=== PATIENT | female | born 1960 | race Native Hawaiian/Other Pacific Islander ===

== ENCOUNTER 2017-03-08 09:13 | Outpatient (CLI) | payer OTHER ==
[~2017-03-08 09:13] MED LIST: ESTR1.254 PO; IBUPROFEN PO; LEXAPRO20 MG OR; LORAZEPAM0.5 MG OR; LOSA50TA PO; MEDR2.5T19 PO; OXYC5TAB53 PO; TRAM50TA PO
== END 2017-03-08 10:45 | disposition home or self-care (01) ==
LOC: MAMMO 09:13
DX: Z12.31 Encounter for screening mammogram for malignant neoplasm of breast (principal)
CPT/HCPCS: G0202-TC

== ENCOUNTER 2017-04-05 10:12 | Outpatient (CLI) | payer OTHER | END 2017-04-05 11:45 | disposition home or self-care (01) | LOC: MAMMO 10:12 | DX: R92.8 Other abnormal and inconclusive findings on diagnostic imaging of breast (principal) ==

== ENCOUNTER 2017-11-30 08:51 | Outpatient (CLI) | payer OTHER | END 2017-11-30 22:27 | disposition home or self-care (01) | LOC: MAMMO 08:51 | DX: R92.8 Other abnormal and inconclusive findings on diagnostic imaging of breast (principal) ==

== ENCOUNTER 2018-02-27 04:47 | Emergency (ER) | payer OTHER ==
[~2018-02-27] VITALS: Ht 170.2 cm; Wt 70.8 kg
[2018-02-27 04:56] VITALS: TEMP 97.8
[2018-02-27 05:41] LABS: PLATELET COUNT 341 K/uL (152-353)
[2018-02-27 05:43] LABS: POTASSIUM 3.3 mmol/L (3.6-5.2)
[2018-02-27 10:45] VITALS: BP 115/65
== END 2018-02-27 10:45 | disposition home or self-care (01) ==
LOC: ED 04:47
PROVIDERS: Internal Medicine
DX: N20.9 Urinary calculus, unspecified (principal)
CPT/HCPCS: 36415; 80053; 81000; 85027; 96360; 96374; 96375; 96376; 99284; J0696; J1885; J2175; J2405; Q9963

== ENCOUNTER 2019-04-15 13:30 | Emergency (ER) | payer OTHER ==
[~2019-04-15] VITALS: Ht 170.2 cm; Wt 70.8 kg
[2019-04-15 14:08] LABS: PLATELET COUNT 384 K/uL (152-353)
[2019-04-15 14:11] LABS: POTASSIUM 4.2 mmol/L (3.6-5.2); SODIUM 141 mmol/L (136-145)
[2019-04-15 15:30] VITALS: BP 136/82; TEMP 97.5
== END 2019-04-15 15:30 | disposition home or self-care (01) ==
LOC: ED 13:30
PROVIDERS: Student in an Organized Health Care Education/Training Program
DX: R42 Dizziness and giddiness (principal); R11.0 Nausea; R51 Headache; I45.81 Long QT syndrome; F17.210 Nicotine dependence, cigarettes, uncomplicated
CPT/HCPCS: 80048; 81000; 83735; 84443; 84484; 85027; 93005; 96374; 96375; 99284; J1885; J2405

== ENCOUNTER 2019-07-02 13:18 | Outpatient (CLI) | payer OTHER | END 2019-07-02 20:22 | disposition home or self-care (01) | LOC: LABW 13:18 | DX: J11.1 Influenza due to unidentified influenza virus with other respiratory manifestations (principal); R05 Cough; R50.9 Fever, unspecified | CPT/HCPCS: 87502 ==

== ENCOUNTER 2019-09-03 13:49 | Outpatient (CLI) | payer OTHER | END 2019-09-03 22:14 | disposition home or self-care (01) | LOC: RAD 13:49 | DX: F41.8 Other specified anxiety disorders (principal); M54.5 Low back pain; N95.1 Menopausal and female climacteric states; Z87.81 Personal history of (healed) traumatic fracture; N95.8 Other specified menopausal and perimenopausal disorders ==

== ENCOUNTER 2020-02-22 08:39 | Emergency (ER) | payer OTHER ==
[~2020-02-22] VITALS: Ht 170.2 cm; Wt 77.1 kg
[2020-02-22 08:44] VITALS: BP 189/109; TEMP 99.1
[2020-02-22 09:39] LABS: POTASSIUM 3.5 mmol/L (3.6-5.2)
[2020-02-22 09:50] LABS: PLATELET COUNT 301 K/uL (152-353)
== END 2020-02-22 14:43 | disposition other institution (70) ==
LOC: ED 08:39
PROVIDERS: Emergency Medicine
DX: R45.851 Suicidal ideations (principal); I10 Essential (primary) hypertension; Z79.899 Other long term (current) drug therapy
CPT/HCPCS: 80053; 80307; 80320; 80329; 81000; 85027; 87077; 87086; 87088; 87186; 93005; 96372; 99283; 99285; J1885

== ENCOUNTER 2020-03-19 13:05 | Outpatient (CLI) | payer OTHER | END 2020-03-19 21:12 | disposition home or self-care (01) | LOC: LAB 13:05 | DX: Z20.828 Contact with and (suspected) exposure to other viral communicable diseases (principal) | CPT/HCPCS: 87635; G2023; U0003 ==

== ENCOUNTER 2020-05-26 08:22 | Outpatient (CLI) | payer OTHER | END 2020-05-26 20:11 | disposition home or self-care (01) | LOC: LAB 08:22 | DX: Z20.828 Contact with and (suspected) exposure to other viral communicable diseases (principal) | CPT/HCPCS: 87635; G2023; U0003 ==

== ENCOUNTER 2020-08-14 11:39 | Outpatient (CLI) | payer OTHER | END 2020-08-14 23:59 | disposition home or self-care (01) | LOC: LAB 11:39 | PROVIDERS: ATTEND Family Medicine | DX: Z20.828 Contact with and (suspected) exposure to other viral communicable diseases (principal) | CPT/HCPCS: 87635; G2023; U0003 ==

== ENCOUNTER 2020-11-13 09:24 | Outpatient (CLI) | payer OTHER ==
[2020-11-13 09:55] LABS: PLATELET COUNT 298 K/uL (152-353)
== END 2020-11-13 21:19 | disposition home or self-care (01) ==
LOC: LABW 09:24
PROVIDERS: ATTEND Family Medicine
DX: I10 Essential (primary) hypertension (principal); R51.9 Headache, unspecified; F17.200 Nicotine dependence, unspecified, uncomplicated; F31.89 Other bipolar disorder; R53.83 Other fatigue; F41.8 Other specified anxiety disorders; G89.4 Chronic pain syndrome; E55.9 Vitamin D deficiency, unspecified
CPT/HCPCS: 36415; 80053; 80061; 81000; 82306; 84439; 84443; 85027

== ENCOUNTER 2020-12-01 12:47 | Outpatient (CLI) | payer OTHER | END 2020-12-01 19:50 | disposition home or self-care (01) | LOC: MAMMO 12:47 | PROVIDERS: ATTEND Obstetrics & Gynecology | DX: Z12.31 Encounter for screening mammogram for malignant neoplasm of breast (principal) ==

== ENCOUNTER 2021-02-26 09:03 | Outpatient (CLI) | payer OTHER | END 2021-02-26 22:35 | disposition home or self-care (01) | LOC: LAB 09:03 | PROVIDERS: ATTEND Family Medicine | DX: J11.1 Influenza due to unidentified influenza virus with other respiratory manifestations (principal); R50.9 Fever, unspecified; R05 Cough; Z20.828 Contact with and (suspected) exposure to other viral communicable diseases | CPT/HCPCS: 87635; G2023; U0003 ==

== ENCOUNTER 2021-07-06 13:21 | Emergency (ER) | payer OTHER ==
[~2021-07-06] VITALS: Ht 167.6 cm; Wt 68.9 kg
[2021-07-06 14:17] LABS: POTASSIUM 4.4 mmol/L (3.6-5.2)
[2021-07-06 14:30] LABS: PLATELET COUNT 324 K/uL (152-353)
[2021-07-06 14:44] LABS: PARTIAL THROMBOPLASTIN TIME 25.3 SECONDS (24.5-33.6)
[2021-07-06 16:27] VITALS: BP 128/67; TEMP 98
== END 2021-07-06 16:27 | disposition home or self-care (01) ==
LOC: ED 13:21
PROVIDERS: Hospitalist
DX: I16.0 Hypertensive urgency (principal); G44.209 Tension-type headache, unspecified, not intractable; R07.89 Other chest pain; F17.210 Nicotine dependence, cigarettes, uncomplicated
CPT/HCPCS: 80053; 82550; 83880; 84484; 85027; 85610; 85730; 93005; 96374; 96375; 99284; J1885; J2405

== ENCOUNTER 2021-09-09 09:34 | Outpatient (CLI) | payer OTHER | END 2021-09-09 19:13 | disposition home or self-care (01) | LOC: LABW 09:34 | PROVIDERS: ATTEND Family Medicine | DX: R50.9 Fever, unspecified (principal); H92.09 Otalgia, unspecified ear; R05.9 Cough, unspecified; Z11.52 Encounter for screening for COVID-19 | CPT/HCPCS: 87635; G2023; U0003 ==

== ENCOUNTER 2022-06-17 11:29 | Emergency (ER) | payer OTHER ==
[~2022-06-17] VITALS: Ht 167.6 cm; Wt 64.4 kg
[2022-06-17 11:31] VITALS: BP 151/69; TEMP 98.8
== END 2022-06-17 13:53 | disposition home or self-care (01) ==
LOC: ED 11:29
DX: M25.062 Hemarthrosis, left knee (principal); W18.39XA Other fall on same level, initial encounter; W54.1XXA Struck by dog, initial encounter; Y92.89 Other specified places as the place of occurrence of the external cause
CPT/HCPCS: 99282

== ENCOUNTER 2023-01-04 10:11 | Outpatient (CLI) | payer OTHER | END 2023-01-04 19:20 | disposition home or self-care (01) | LOC: MAMMO 10:11 | PROVIDERS: ATTEND Family Medicine | DX: N63.10 Unspecified lump in the right breast, unspecified quadrant (principal); N64.59 Other signs and symptoms in breast | CPT/HCPCS: G0279 ==

== ENCOUNTER 2023-03-26 04:53 | Inpatient (IN) | payer OTHER ==
[2023-03-26] VITALS (10 sets, daily range): BP systolic 94–134; BP diastolic 49–71; TEMP 97.7–98.7; Ht 167.6 cm; Wt 68.5 kg
[~2023-03-26] VITALS: Ht 167.6 cm; Wt 68.5 kg
[2023-03-26 05:47] LABS: POTASSIUM 3.7 mmol/L (3.6-5.2)
[2023-03-26 05:48] LABS: PLATELET COUNT 272 K/uL (152-353)
[2023-03-26] MEDS ORDERED: CLON0.5T36 PO (18:03)
[2023-03-26] MEDS ORDERED: GRALISE300 MG PO (18:03)
[2023-03-26] MEDS ORDERED: LOSA50TA PO (18:04)
[2023-03-26] MEDS ORDERED: OXCARBAZEPIN150 MG PO (18:06)
[2023-03-26] MEDS ORDERED: AMIT25TA22 PO (18:07)
[2023-03-26] MEDS ORDERED: LIPITOR10 MG PO (18:08)
[2023-03-26] MEDS ORDERED: MOBIC15 MG PO (18:09)
[2023-03-26] MEDS ORDERED: METO50TA63 PO (18:10)
[2023-03-26] MEDS ORDERED: CEPHALEXIN500 MG PO (18:11)
[2023-03-27 03:32] VITALS: BP 119/70; TEMP 98.6
[2023-03-27 05:25] LABS: PLATELET COUNT 231 K/uL (152-353)
[2023-03-27 06:04] LABS: POTASSIUM 3.4 mmol/L (3.6-5.2)
[2023-03-27 07:57] VITALS: BP 168/85; TEMP 98.2
== END 2023-03-27 11:12 | disposition left against medical advice (07) | DRG 698 ==
LOC: ED 04:53 → MED/SURG 08:33
PROVIDERS: Family Medicine; ADMIT Internal Medicine; ATTEND Internal Medicine
DX: N28.89 Other specified disorders of kidney and ureter (principal); J18.9 Pneumonia, unspecified organism; M62.82 Rhabdomyolysis; D32.9 Benign neoplasm of meninges, unspecified; R41.82 Altered mental status, unspecified; D72.828 Other elevated white blood cell count; R09.02 Hypoxemia; I10 Essential (primary) hypertension; R11.2 Nausea with vomiting, unspecified; R19.7 Diarrhea, unspecified; F31.9 Bipolar disorder, unspecified; F17.210 Nicotine dependence, cigarettes, uncomplicated
CPT/HCPCS: 36415; 36600; 80053; 80307; 80320; 81000; 82550; 82805; 83605; 84484; 85027; 87635; 93005; 94664; 96360; 96361; 96367; 96372; 99284; A9576; J0696; J0744; J1650; J1956; J3490; U0003